=== PATIENT | female | born 1960 | race Caucasian/White ===

== ENCOUNTER → 2023-10-23 07:50 | Outpatient (REF) | payer OTHER, SELFPAY | LOC: RAD 07:50 | PROVIDERS: ATTENDING PHYSICIAN Internal Medicine Hematology & Oncology; FAMILY PHYSICIAN Family Medicine | DX: C79.51 Secondary malignant neoplasm of bone (principal); C50.411 Malignant neoplasm of upper-outer quadrant of right female breast | CPT/HCPCS: 71260; 74177; Q9967 ==

== ENCOUNTER → 2023-11-01 09:10 | Outpatient (REF) | payer OTHER, SELFPAY | LOC: MRI 3T 09:10 | PROVIDERS: ATTENDING PHYSICIAN Registered Nurse; FAMILY PHYSICIAN Family Medicine | DX: C50.411 Malignant neoplasm of upper-outer quadrant of right female breast (principal) | CPT/HCPCS: 77049; A9585 ==

== ENCOUNTER → 2023-11-06 12:48 | Outpatient (REF) | payer OTHER, SELFPAY | LOC: MRI 3T 12:48 | PROVIDERS: ATTENDING PHYSICIAN Internal Medicine Hematology & Oncology; FAMILY PHYSICIAN Family Medicine | DX: C79.51 Secondary malignant neoplasm of bone (principal); C50.411 Malignant neoplasm of upper-outer quadrant of right female breast | CPT/HCPCS: 72158; A9575 ==

== ENCOUNTER → 2024-04-25 08:27 | Outpatient (REF) | payer OTHER, SELFPAY | LOC: RAD 08:27 | PROVIDERS: ATTENDING PHYSICIAN Internal Medicine Hematology & Oncology | DX: C79.51 Secondary malignant neoplasm of bone (principal); C50.411 Malignant neoplasm of upper-outer quadrant of right female breast | CPT/HCPCS: 71260; 74177; Q9967 ==

== ENCOUNTER → 2024-04-26 07:53 | Outpatient (REF) | payer OTHER, SELFPAY | LOC: MRI 3T 07:53 | PROVIDERS: ATTENDING PHYSICIAN Internal Medicine Hematology & Oncology; FAMILY PHYSICIAN Family Medicine | DX: C79.51 Secondary malignant neoplasm of bone (principal); C50.411 Malignant neoplasm of upper-outer quadrant of right female breast | CPT/HCPCS: 77049; A9585 ==

== ENCOUNTER → 2024-04-29 07:08 | Outpatient (REF) | payer OTHER, SELFPAY | LOC: MRI 3T 07:08 | PROVIDERS: ATTENDING PHYSICIAN Internal Medicine Hematology & Oncology; FAMILY PHYSICIAN Family Medicine | DX: C79.51 Secondary malignant neoplasm of bone (principal); C50.411 Malignant neoplasm of upper-outer quadrant of right female breast | CPT/HCPCS: 72158; A9575 ==

== ENCOUNTER → 2024-08-20 09:09 | Outpatient (REF) | payer OTHER, SELFPAY | LOC: RAD 09:09 | PROVIDERS: ATTENDING PHYSICIAN Internal Medicine Hematology & Oncology; FAMILY PHYSICIAN Family Medicine | DX: C79.51 Secondary malignant neoplasm of bone (principal); C50.411 Malignant neoplasm of upper-outer quadrant of right female breast | CPT/HCPCS: 77080 ==

== ENCOUNTER → 2024-10-15 06:35 | Outpatient (REF) | payer OTHER, SELFPAY | LOC: RAD 06:35 | PROVIDERS: ATTENDING PHYSICIAN Internal Medicine Hematology & Oncology; FAMILY PHYSICIAN Family Medicine | DX: C79.51 Secondary malignant neoplasm of bone (principal); C50.411 Malignant neoplasm of upper-outer quadrant of right female breast | CPT/HCPCS: 71260; 74177; Q9967 ==

== ENCOUNTER → 2024-12-16 12:50 | Outpatient (REF) | payer OTHER, SELFPAY | LOC: PAVMRI 12:50 | PROVIDERS: ATTENDING PHYSICIAN Internal Medicine Hematology & Oncology; FAMILY PHYSICIAN Family Medicine | DX: C79.51 Secondary malignant neoplasm of bone (principal); C50.411 Malignant neoplasm of upper-outer quadrant of right female breast | CPT/HCPCS: 72158; A9575 ==